=== PATIENT | male | born 1975 | race African-American/Black ===

== ENCOUNTER 2018-02-19 23:11 | Emergency (ER) | payer OTHER ==
[~2018-02-19] VITALS: Ht 190.5 cm; Wt 108.9 kg
[~2018-02-19 23:11] MED LIST: DOXYCYCLINE 10100 MG PO; DULERA 100 MCG/13 GM; EPIPEN 2-P0.3 MG/0.3 IM; HYDROCODONE-AP1 EAC6 PO; IBUPROFEN 800800 M1 PO; MEDROL DOSPAK21 TA1 PO; PERCOCET PO; PREDNISONE 20 M20 M1 PO; PREDNISONE50 MG PO; VENTOLIN HFA 1818 GM INH
[2018-02-19] MEDS ORDERED: DULERA 200 MCG/13 GM INH (23:22)
[2018-02-19 23:30] LABS: URINE BILIRUBIN NEGATIVE (Negative); URINE BLOOD 2+ (Negative); URINE CLARITY CLEAR; URINE COLOR YELLOW; URINE GLUCOSE-RANDOM NEGATIVE (Negative); URINE KETONES NEGATIVE (Negative); URINE LEUKOCYTES-REFLEX NEGATIVE (Negative); URINE NITRITE-REFLEX NEGATIVE (Negative); URINE PROTEIN NEGATIVE (Negative); URINE SPECIFIC GRAVITY 1.025 (1.005-1.030); URINE UROBILINOGEN 0.2 E.U./dl (0.2-1.0)
[2018-02-19 23:51] LABS: ABSOLUTE EOSINOPHILS 0.2 thou/uL (0.0-0.7); ABSOLUTE LYMPHOCYTES 1.9 thou/uL (0.8-5.3); ABSOLUTE MONOCYTES 0.4 thou/uL (0.0-1.2); ABSOLUTE NEUTROPHILS 3.8 thou/uL (1.6-8.1); BASOPHILS 0.6 %; EOSINOPHILS 3.1 %; HEMATOCRIT 42.2 % (42.0-52.0); HEMOGLOBIN 14.5 gm/dL (14.0-18.0); LYMPHOCYTES 29.5 %; MCH 31.2 pg (26.0-34.0); MCHC 34.3 g/dL (28.0-37.0); MONOCYTES 6.4 %; MPV 7.7 fl. (7.2-11.1); NUCLEATED RBCS 0 /100WBC; PLATELET COUNT* 326 thou/uL (150-400); POLYS 60.4 %; RBC 4.64 mil/uL (4.50-6.00); RDW-CV 13.8 % (10.5-14.5); WBC 6.3 thou/uL (4.0-11.0)
[2018-02-19 23:54] LABS: CALCIUM 8.7 mg/dL (8.5-10.1); CREATININE 1.3 mg/dL (0.6-1.3); POTASSIUM 3.9 mmol/L (3.5-5.1)
[2018-02-19 23:59] LABS: ALBUMIN 3.8 g/dL (3.4-5.0); TOTAL BILIRUBIN 0.2 mg/dL (<0.1-1.0); TOTAL PROTEIN 7.3 g/dL (6.4-8.2)
[2018-02-20 00:42] LABS: CASTS None Seen /LPF (None Seen); SQUAMOUS 0-3 Few /LPF (0-3); URINE WBC-REFLEX None Seen /HPF (0-5)
[2018-02-20 00:43] LABS: BACTERIA-REFLEX 1-9 Few /HPF (None Seen); CRYSTALS None Seen /LPF (None Seen); URINE RBC 0-2 Rare /HPF (0-2)
[2018-02-20] MEDS ORDERED: BENTYL 20 MG TA20 M1 PO (00:45)
[2018-02-20] MEDS ORDERED: CIPRO250 M2 PO (00:45)
[2018-02-20] MEDS ORDERED: PROMETHAZINE HC25 M1 PO (00:48)
[2018-02-20 01:04] VITALS: BP 124/78
== END 2018-02-20 01:05 | disposition home or self-care (01) ==
LOC: M.ERS 23:11
PROVIDERS: Nurse Practitioner
DX: R10.33 Periumbilical pain (principal); J45.909 Unspecified asthma, uncomplicated; F17.210 Nicotine dependence, cigarettes, uncomplicated; Z91.018 Allergy to other foods

== ENCOUNTER 2020-10-19 02:48 | Emergency (ER) | payer OTHER ==
[~2020-10-19] VITALS: Ht 190.5 cm; Wt 108.9 kg
[~2020-10-19 02:48] MED LIST changes: +BENTYL 20 MG TA20 M1 PO; +CIPRO250 M2 PO; +DULERA 200 MCG/13 GM INH; +PROMETHAZINE HC25 M1 PO
[2020-10-19] MEDS ORDERED: BACTRIM DS TAB1 EACH PO (04:21)
[2020-10-19 04:28] VITALS: BP 138/72
== END 2020-10-19 04:28 | disposition home or self-care (01) ==
LOC: M.ERS 02:48
DX: L73.9 Follicular disorder, unspecified (principal); J45.909 Unspecified asthma, uncomplicated; F17.210 Nicotine dependence, cigarettes, uncomplicated; Z79.2 Long term (current) use of antibiotics; Z79.899 Other long term (current) drug therapy; Z91.018 Allergy to other foods